=== PATIENT | male | born 1990 ===

== ENCOUNTER 2019-05-17 17:30 | Outpatient (CLI) | payer OTHER ==
[~2019-05-17 17:30] MED LIST: AMOX1TAB12 PO; IBUPROFEN800 MG PO
== END 2019-05-17 18:00 | disposition home or self-care (01) ==
LOC: RAD 17:30
DX: S80.912A Unspecified superficial injury of left knee, initial encounter (principal)

== ENCOUNTER 2019-07-18 09:18 | Outpatient (CLI) | payer OTHER | END 2019-07-18 11:59 | disposition home or self-care (01) | LOC: LAB 09:18 | DX: M79.672 Pain in left foot (principal); Z00.00 Encounter for general adult medical examination without abnormal findings ==